=== PATIENT | female | born 1940 | race Caucasian/White ===

== ENCOUNTER → 2017-10-03 | Outpatient (CLI) | payer MEDICARE, OTHER | END | disposition home or self-care (01) | LOC: PCVCCLINIC 14:51 | DX: I25.810 Atherosclerosis of coronary artery bypass graft(s) without angina pectoris (principal); I10 Essential (primary) hypertension; R01.1 Cardiac murmur, unspecified; I77.9 Disorder of arteries and arterioles, unspecified; I48.0 Paroxysmal atrial fibrillation; I25.5 Ischemic cardiomyopathy; E78.00 Pure hypercholesterolemia, unspecified; R60.9 Edema, unspecified; Z87.891 Personal history of nicotine dependence; Z79.82 Long term (current) use of aspirin | CPT/HCPCS: 80061; 93005; G0463 ==

== ENCOUNTER → 2017-10-25 | Outpatient (CLI) | payer MEDICARE, OTHER | END | disposition home or self-care (01) | LOC: PCVCIMAG 13:34 | DX: I65.23 Occlusion and stenosis of bilateral carotid arteries (principal); E78.00 Pure hypercholesterolemia, unspecified; I10 Essential (primary) hypertension; I25.10 Atherosclerotic heart disease of native coronary artery without angina pectoris; I77.9 Disorder of arteries and arterioles, unspecified; R60.0 Localized edema; R00.1 Bradycardia, unspecified; I48.0 Paroxysmal atrial fibrillation; R94.31 Abnormal electrocardiogram [ECG] [EKG]; I25.5 Ischemic cardiomyopathy; Z79.899 Other long term (current) drug therapy; Z79.82 Long term (current) use of aspirin | CPT/HCPCS: 93005; 93306; 93880; G0463 ==

== ENCOUNTER 2021-11-18 18:44 | Inpatient (IN) | payer MEDICARE, OTHER ==
[~2021-11-18] VITALS: Ht 177.8 cm; Wt 54.7 kg
--- NOTE | 2021-11-18 19:32 | RAD ---
AP chest. HISTORY: Probable narcotic OD AP view was taken of the chest. There is arthritis in both shoulders. Patient had previous coronary b ypass. There is no effusion. Lungs are free of infiltrates. IMPRESSION: 1. No acute infiltrates. Electronically signed by: Fredy Lopez MD (11/18/2021 7:29 PM) [facility]
[2021-11-18 19:36] LABS: BASO % 1 % (0-3); EOS % 1 % (0-3); HEMOGLOBIN 7.9 g/dL (12.0-15.5); LYMPH # 0.8 x10^3/uL (1.0-4.8); LYMPH % 23 % (24-48); MEAN CORPUSCULAR HEMOGLOBIN 35 pg (25-35); MEAN CORPUSCULAR HGB CONC 33 g/dL (31-37); MEAN CORPUSCULAR VOLUME 107 fL (79-100); MONO # 0.3 x10^3/uL (0.0-1.1); MONO % 9 % (0-9); NEUT # 2.4 x10^3/uL (1.8-7.7); NEUT % 67 % (31-73); PLATELET COUNT 96 x10^3/uL (140-400); RED BLOOD COUNT 2.24 x10^6/uL (3.50-5.40); RED CELL DISTRIBUTION WIDTH 17.6 % (11.5-14.5); WHITE BLOOD COUNT 3.6 x10^3/uL (4.0-11.0)
[2021-11-18 19:45] LABS: CALCIUM 8.8 mg/dL (8.5-10.1); CREATININE 1.8 mg/dL (0.6-1.0); GFR 27.1
[2021-11-18] MEDS ORDERED: ACETAMINOPHEN 500 MG TABLET PO ONE (19:45)
[2021-11-18 19:46] LABS: PROTHROMBIN TIME PATIENT 13.5 SEC (11.7-14.0)
[2021-11-18 19:50] LABS: ALBUMIN 2.9 g/dL (3.4-5.0); TOTAL BILIRUBIN 0.3 mg/dL (0.2-1.0); TOTAL PROTEIN 5.9 g/dL (6.4-8.2)
[2021-11-18 20:08] LABS: BARBITURATES NEG (NEG); BENZODIAZEPINES NEG (NEG); CANNABINOIDS NEG (NEG); COCAINE NEG (NEG); METHADONE NEG (NEG); OPIATES NEG (NEG); PHENCYCLIDINE NEG (NEG)
[2021-11-18 20:10] LABS: HYALINE CASTS, URINE FEW /HPF
[2021-11-18 20:11] LABS: AMPHETAMINE/METHAMPHETAMINE NEG (NEG); BACTERIA,URINE MANY /HPF (0-FEW); RBC,URINE 0 /HPF (0-2)
[2021-11-18] MEDS ORDERED: cefTRIAXone IV Push 1 GM VIAL. IVP ONE (20:45)
[2021-11-18] MEDS ORDERED: IV NORMAL SALINE 500ML BAG 500 ML IV ONE (20:45)
--- NOTE | 2021-11-18 21:34 | RAD ---
BILATERAL LOWER EXTREMITY DUPLEX ARTERY ULTRASOUND Indication: Reason: poor BLE pulses, LLE cellulitis / Comparison: None. Procedure: Real-time grayscale, color flow Doppler, and Doppler spectral waveform analysis of the art erial system of the lower extremity is performed. Findings: There is no arterial occlusion. There is bilateral atherosclerotic disease. There is no elevated peak systolic velocity on the left. The right peroneal artery has elevated peak systolic velocity, 171 cm /second. There are monophasic waveforms throughout the right lower extremity. There is low velocity and low pu lsatility flow in the right posterior tibial and dorsalis pedis arteries. There are monophasic wavefo andrzej throughout the Left lower extremity. IMPRESSION: 1. No arterial occlusion. 2. There are monophasic waveforms throughout both lower extremities suggesting peripheral arterial d isease. There may be more proximal flow-limiting stenosis. Electronically signed by: Danny Cartwright MD (11/18/2021 9:32 PM) [facility]
--- NOTE | 2021-11-18 22:20 | PDOC1 ---
History and Physical Date of Admission Date of Admission DATE: 11/18/21 TIME: 22:05 Identification/Chief Complaint Chief Complaint AMS Source Source: Chart review History of Present Illness History of Present Illness Patient is 81-year-old female with past medical history DM2, HTN, atrial fibrillation, DVTs, dementia, who presents the ED from her [facility] due to poor responsiveness and altered mental status. Patient reportedly took 2 pain medications with drop in her blood pressure to 73/44. This improved with Narcan, but now in rate controlled A. fib. Labs of admission showed WBC 3.6, hemoglobin 7.9, hematocrit 24, MCV 107, platelets 96, BUN 57, creatinine 1.8, BUN/creatinine ratio 32, albumin 2.9. Due to concern for some peripheral artery disease and cellulitis to her left lower extremity, a duplex scan of the left lower extremity was ordered that showed no arterial occlusion, but monophasic waveforms throughout both lower extremities suggesting peripheral arterial disease. Patient did receive a dose of Rocephin in the ED. Because she was not lucid after receiving Narcan and unknown baseline, she will be admitted for further medical management. Past Medical History Past Medical History A. fib, dementia, CHF, DVTs, GERD, HLD, CKD, cellulitis, CABG Past Surgical History Past Surgical History: CABG Family History Family History: Family History Unknown Social History Smoke: No ALCOHOL: none Drugs: None Current Medications Current Medications Current Medications Acetaminophen (Tylenol) 1,000 mg 1X ONCE PO Last administered on 11/18/21at 21:13; Start 11/18/21 at 19:45; Stop 11/18/21 at 19:46; Status DC Ceftriaxone Sodium (Rocephin) 1 gm 1X ONCE IVP Last administered on 11/18/21at 21:13; Start 11/18/21 at 20:45; Stop 11/18/21 at 20:46; Status DC Sodium Chloride 500 ml @ 500 mls/hr 1X ONCE IV Last administered on 11/18/21at 21:13; Start 11/18/21 at 20:45; Stop 11/18/21 at 21:44; Status DC Allergies Allergies: Coded Allergies: No Known Drug Allergies (Unverified , 11/18/21) ROS Review of System Unable to obtain this time due to clinical condition Physical Exam Physical Exam General: Alert, Oriented X1, Cooperative, No acute distress. Frail-appearing. HEENT: PERRLA, EOMI Lungs: Clear to auscultation, Normal air movement Heart: Irregularly irregular, no murmurs Cardiovascular: S1, S2 Abdomen: Normal bowel sounds, Soft, No tenderness Extremities: No clubbing, No cyanosis Skin: Left lower extremity erythema. No significant lesion Neuro: Normal tone, Sensation intact Psych/Mental Status: Confused, lethargic Vitals Vitals Vital Signs Date Time Temp Pulse Resp B/P (MAP) Pulse Ox O2 Delivery O2 Flow Rate FiO2 11/18/21 21:03 55 118/56 (76) 100 Room Air 11/18/21 18:44 20 Labs Labs Laboratory Tests Test 11/18/21 19:25 11/18/21 19:50 White Blood Count 3.6 x10^3/uL (4.0-11.0) Red Blood Count 2.24 x10^6/uL (3.50-5.40) Hemoglobin 7.9 g/dL (12.0-15.5) Hematocrit 24.0 % (36.0-47.0) Mean Corpuscular Volume 107 fL (79-100) Mean Corpuscular Hemoglobin 35 pg (25-35) Mean Corpuscular Hemoglobin Concent 33 g/dL (31-37) Red Cell Distribution Width 17.6 % (11.5-14.5) Platelet Count 96 x10^3/uL (140-400) Neutrophils (%) (Auto) 67 % (31-73) Lymphocytes (%) (Auto) 23 % (24-48) Monocytes (%) (Auto) 9 % (0-9) Eosinophils (%) (Auto) 1 % (0-3) Basophils (%) (Auto) 1 % (0-3) Neutrophils # (Auto) 2.4 x10^3/uL (1.8-7.7) Lymphocytes # (Auto) 0.8 x10^3/uL (1.0-4.8) Monocytes # (Auto) 0.3 x10^3/uL (0.0-1.1) Eosinophils # (Auto) 0.0 x10^3/uL (0.0-0.7) Basophils # (Auto) 0.0 x10^3/uL (0.0-0.2) Prothrombin Time 13.5 SEC (11.7-14.0) Prothromb Time International Ratio 1.1 (0.8-1.1) Activated Partial Thromboplast Time 36 SEC (24-38) Sodium Level 140 mmol/L (136-145) Potassium Level 5.0 mmol/L (3.5-5.1) Chloride Level 107 mmol/L (98-107) Carbon Dioxide Level 24 mmol/L (21-32) Anion Gap 9 (6-14) Blood Urea Nitrogen 57 mg/dL (7-20) Creatinine 1.8 mg/dL (0.6-1.0) Estimated GFR (Cockcroft-Gault) 27.1 BUN/Creatinine Ratio 32 (6-20) Glucose Level 94 mg/dL (70-99) Calcium Level 8.8 mg/dL (8.5-10.1) Total Bilirubin 0.3 mg/dL (0.2-1.0) Aspartate Amino Transf (AST/SGOT) 25 U/L (15-37) Alanine Aminotransferase (ALT/SGPT) 27 U/L (14-59) Alkaline Phosphatase 90 U/L (46-116) Troponin I High Sensitivity 27 ng/L (4-50) Total Protein 5.9 g/dL (6.4-8.2) Albumin 2.9 g/dL (3.4-5.0) Albumin/Globulin Ratio 1.0 (1.0-1.7) Ethyl Alcohol Level < 10 mg/dL (0-10) Urine Collection Type Unknown Urine Color (Auto) Light yellow Urine Turbidity Hazy Urine pH (Auto) 5.5 (<5.0-8.0) Urine Specific [place] 1.014 (1.000-1.030) Urine Protein (Auto) Negative mg/dL (Negative) Urine Glucose (Auto)(UA) Negative mg/dL (Negative) Urine Ketones (Auto) Negative mg/dL (Negative) Urine Blood (Auto) Negative (Negative) Urine Nitrite Negative (Negative) Urine Bilirubin (Auto) Negative (Negative) Urine Urobilinogen (Auto) 2 mg/dL (Normal) Urine Leukocyte Esterase (Auto) Small (Negative) Urine RBC 0 /HPF (0-2) Urine WBC 11-20 /HPF (0-4) Urine Squamous Epithelial Cells Few /LPF Urine Bacteria Many /HPF (0-FEW) Urine Hyaline Casts Few /HPF Urine Opiates Screen Neg (NEG) Urine Methadone Screen Neg (NEG) Urine Barbiturates Neg (NEG) Urine Phencyclidine Screen Neg (NEG) Urine Amphetamine/Methamphetamine Neg (NEG) Urine Benzodiazepines Screen Neg (NEG) Urine Cocaine Screen Neg (NEG) Urine Cannabinoids Screen Neg (NEG) Urine Ethyl Alcohol Neg (NEG) Laboratory Tests Test 11/18/21 19:25 11/18/21 19:50 White Blood Count 3.6 x10^3/uL (4.0-11.0) Red Blood Count 2.24 x10^6/uL (3.50-5.40) Hemoglobin 7.9 g/dL (12.0-15.5) Hematocrit 24.0 % (36.0-47.0) Mean Corpuscular Volume 107 fL (79-100) Mean Corpuscular Hemoglobin 35 pg (25-35) Mean Corpuscular Hemoglobin Concent 33 g/dL (31-37) Red Cell Distribution Width 17.6 % (11.5-14.5) Platelet Count 96 x10^3/uL (140-400) Neutrophils (%) (Auto) 67 % (31-73) Lymphocytes (%) (Auto) 23 % (24-48) Monocytes (%) (Auto) 9 % (0-9) Eosinophils (%) (Auto) 1 % (0-3) Basophils (%) (Auto) 1 % (0-3) Neutrophils # (Auto) 2.4 x10^3/uL (1.8-7.7) Lymphocytes # (Auto) 0.8 x10^3/uL (1.0-4.8) Monocytes # (Auto) 0.3 x10^3/uL (0.0-1.1) Eosinophils # (Auto) 0.0 x10^3/uL (0.0-0.7) Basophils # (Auto) 0.0 x10^3/uL (0.0-0.2) Prothrombin Time 13.5 SEC (11.7-14.0) Prothromb Time International Ratio 1.1 (0.8-1.1) Activated Partial Thromboplast Time 36 SEC (24-38) Sodium Level 140 mmol/L (136-145) Potassium Level 5.0 mmol/L (3.5-5.1) Chloride Level 107 mmol/L (98-107) Carbon Dioxide Level 24 mmol/L (21-32) Anion Gap 9 (6-14) Blood Urea Nitrogen 57 mg/dL (7-20) Creatinine 1.8 mg/dL (0.6-1.0) Estimated GFR (Cockcroft-Gault) 27.1 BUN/Creatinine Ratio 32 (6-20) Glucose Level 94 mg/dL (70-99) Calcium Level 8.8 mg/dL (8.5-10.1) Total Bilirubin 0.3 mg/dL (0.2-1.0) Aspartate Amino Transf (AST/SGOT) 25 U/L (15-37) Alanine Aminotransferase (ALT/SGPT) 27 U/L (14-59) Alkaline Phosphatase 90 U/L (46-116) Troponin I High Sensitivity 27 ng/L (4-50) Total Protein 5.9 g/dL (6.4-8.2) Albumin 2.9 g/dL (3.4-5.0) Albumin/Globulin Ratio 1.0 (1.0-1.7) Ethyl Alcohol Level < 10 mg/dL (0-10) Urine Collection Type Unknown Urine Color (Auto) Light yellow Urine Turbidity Hazy Urine pH (Auto) 5.5 (<5.0-8.0) Urine Specific [place] 1.014 (1.000-1.030) Urine Protein (Auto) Negative mg/dL (Negative) Urine Glucose (Auto)(UA) Negative mg/dL (Negative) Urine Ketones (Auto) Negative mg/dL (Negative) Urine Blood (Auto) Negative (Negative) Urine Nitrite Negative (Negative) Urine Bilirubin (Auto) Negative (Negative) Urine Urobilinogen (Auto) 2 mg/dL (Normal) Urine Leukocyte Esterase (Auto) Small (Negative) Urine RBC 0 /HPF (0-2) Urine WBC 11-20 /HPF (0-4) Urine Squamous Epithelial Cells Few /LPF Urine Bacteria Many /HPF (0-FEW) Urine Hyaline Casts Few /HPF Urine Opiates Screen Neg (NEG) Urine Methadone Screen Neg (NEG) Urine Barbiturates Neg (NEG) Urine Phencyclidine Screen Neg (NEG) Urine Amphetamine/Methamphetamine Neg (NEG) Urine Benzodiazepines Screen Neg (NEG) Urine Cocaine Screen Neg (NEG) Urine Cannabinoids Screen Neg (NEG) Urine Ethyl Alcohol Neg (NEG) Images Images PATIENT: NATALIA SERRA ACCOUNT: [id number] : 1940 LOCATION: ER AGE: 81 SEX: F EXAM STATUS: REG ER ORD. PHYSICIAN: CIARRA WILSON MD REASON: poor BLE pulses, LLE cellulitis PROCEDURE: DUPLEX LOWER EXTREMITY BILAT BILATERAL LOWER EXTREMITY DUPLEX ARTERY ULTRASOUND Indication: Reason: poor BLE pulses, LLE cellulitis / Comparison: None. Procedure: Real-time grayscale, color flow Doppler, and Doppler spectral waveform analysis of the arterial system of the lower extremity is performed. Findings: There is no arterial occlusion. There is bilateral atherosclerotic disease. There is no elevated peak systolic velocity on the left. The right peroneal artery has elevated peak systolic velocity, 171 cm/second. There are monophasic waveforms throughout the right lower extremity. There is low velocity and low pulsatility flow in the right posterior tibial and dorsalis pedis arteries. There are monophasic waveforms throughout the Left lower extremity. IMPRESSION: 1. No arterial occlusion. 2. There are monophasic waveforms throughout both lower extremities suggesting peripheral arterial disease. There may be more proximal flow-limiting stenosis. VTE Prophylaxis Ordered VTE Prophylaxis Devices: No VTE Pharmacological Prophylaxi: Yes Assessment/Plan Assessment/Plan AMS Narcotic overdose Peripheral vascular disease Cellulitis left lower extremity WILLIAM Plan: No opiates seen on urine drug screen. Will need to discuss with [facility] about patient's baseline mental status. Continue treatment with IV Rocephin Unknown renal function baseline. Will hydrate. CRP pending Resume home meds FEN - Cardiac diet PPX - Heparin FULL CODE/no surrogate decision-maker able to be named at this time Dispo - inpatient for above Justifications for Admission Other Justification QUYNH DOWNEY MD Nov 18, 2021 22:20
[2021-11-18] MEDS ORDERED: ACETAMINOPHEN 325 MG TABLET. PO PRN (22:30)
[2021-11-18] MEDS ORDERED: CALCIUM CARBONATE 500 MG TAB.CHEW PO PRN (22:30)
[2021-11-18] MEDS ORDERED: MAG HYDROX/ALUMINUM HYD/SIMETH 30 ML ORAL.SUSP PO PRN (22:30)
[2021-11-18] MEDS ORDERED: ONDANSETRON PF 4 MG/2 ML VIAL. IVP PRN (22:30)
--- NOTE | 2021-11-18 23:17 | PHYS DOC ---
Past Medical History Additional Past Medical Histor: CKD,CELLULITIS Past Surgical History: Coronary Bypass Surgery Smoking Status: Never Smoker Alcohol Use: None Adult General Chief Complaint Chief Complaint: ALTERED MENTAL STATUS HPI HPI The patient is an 81-year-old female with a history of hypertension, hyperlipidemia, coronary artery disease status post CABG, atrial fibrillation on rate control medication but not on a blood thinner, some degree of heart failure on daily Lasix, dementia with behavioral disturbance on Risperdal. Ms. Nugent presents for evaluation of altered mental status at the nursing facility. Reportedly nursing staff found her not responsive. EMS were called. Upon arrival patient was not responsive with pinpoint pupils but was breathing and had a pulse. She was hypotensive to 70s/50s and bradycardic with a heart rate in the 40s. EMS gave IV Narcan whereupon the patient awoke and blood pressure normalized. Heart rate remained slow in the 40s to 50s. Blood glucose was appropriate during transport. Upon initial evaluation here in the emergency department patient is alert and a ppropriately interactive, stating she hurts all over. She remains bradycardic but other vital signs are appropriate. Rhythm on the cardiac cath technologist appears to be slow rate atrial fibrillation. She tells me that she took 2 pain pills of some kind that she had in her room before she woke up in the ambulance. She is unable to be is more specific and I do not see narcotic pain medications on her MAR. She does not provide much further history but is in no acute distress. Review of Systems Review of Systems A 12 point review of systems was completed and was negative except where noted in HPI above. Current Medications Current Medications Current Medications Medications (Trade) Dose Ordered Sig/[facility] Start Time Stop Time Status Last Admin Dose Admin Acetaminophen (Tylenol) 1,000 mg 1X ONCE 11/18/21 19:45 11/18/21 19:46 DC 11/18/21 21:13 1,000 MG Ceftriaxone Sodium (Rocephin) 1 gm 1X ONCE 11/18/21 20:45 11/18/21 20:46 DC 11/18/21 21:13 1 GM Sodium Chloride 500 ml @ 500 mls/hr 1X ONCE 11/18/21 20:45 11/18/21 21:44 DC 11/18/21 21:13 500 MLS/HR Allergies Allergies Allergies Coded Allergies Type Severity Reaction Last Updated Verified No Known Drug Allergies 11/18/21 No Physical Exam Physical Exam Cachectic, elderly chronically ill-appearing female who is nontoxic and in no acute distress. Head is normocephalic and atraumatic. Neck is supple and nontender. Oropharynx is moist. Lungs are clear to auscultation at all stations. There is a normal S1 and S2 without rubs or gallops and capillary refill is appropriate, less than 2 seconds globally. Abdomen is soft, nontender and nondistended without pulsatile mass. Skin is warm and dry without cyanosis, clubbing or edema. Psychiatrically, the patient demonstrates appropriate mood and affect and is alert. Evaluation of the extremities reveals nonpalpable pulses to the bilateral feet, although both feet are warm and well perfused with sensation and strength intact. There is also a distal left lower leg ana lulitis. Appears patient has been receiving treatment for this at the nursing facility. Current Patient Data Vital Signs Vital Signs Date Time Temp Pulse Resp B/P (MAP) Pulse Ox O2 Delivery O2 Flow Rate FiO2 11/18/21 20:33 53 115/56 (75) 99 Room Air 11/18/21 18:44 20 Lab Values Laboratory Tests Test 11/18/21 19:25 11/18/21 19:50 White Blood Count 3.6 x10^3/uL (4.0-11.0) L Red Blood Count 2.24 x10^6/uL (3.50-5.40) L Hemoglobin 7.9 g/dL (12.0-15.5) L Hematocrit 24.0 % (36.0-47.0) L Mean Corpuscular Volume 107 fL (79-100) H Mean Corpuscular Hemoglobin 35 pg (25-35) Mean Corpuscular Hemoglobin Concent 33 g/dL (31-37) Red Cell Distribution Width 17.6 % (11.5-14.5) H Platelet Count 96 x10^3/uL (140-400) L Neutrophils (%) (Auto) 67 % (31-73) Lymphocytes (%) (Auto) 23 % (24-48) L Monocytes (%) (Auto) 9 % (0-9) Eosinophils (%) (Auto) 1 % (0-3) Basophils (%) (Auto) 1 % (0-3) Neutrophils # (Auto) 2.4 x10^3/uL (1.8-7.7) Lymphocytes # (Auto) 0.8 x10^3/uL (1.0-4.8) L Monocytes # (Auto) 0.3 x10^3/uL (0.0-1.1) Eosinophils # (Auto) 0.0 x10^3/uL (0.0-0.7) Basophils # (Auto) 0.0 x10^3/uL (0.0-0.2) Prothrombin Time 13.5 SEC (11.7-14.0) Prothrombin Time INR 1.1 (0.8-1.1) Activated Partial Thromboplast Time 36 SEC (24-38) Sodium Level 140 mmol/L (136-145) Potassium Level 5.0 mmol/L (3.5-5.1) Chloride Level 107 mmol/L (98-107) Carbon Dioxide Level 24 mmol/L (21-32) Anion Gap 9 (6-14) Blood Urea Nitrogen 57 mg/dL (7-20) H Creatinine 1.8 mg/dL (0.6-1.0) H Estimated GFR (Cockcroft-Gault) 27.1 BUN/Creatinine Ratio 32 (6-20) H Glucose Level 94 mg/dL (70-99) Calcium Level 8.8 mg/dL (8.5-10.1) Total Bilirubin 0.3 mg/dL (0.2-1.0) Aspartate Amino Transferase (AST) 25 U/L (15-37) Alanine Aminotransferase (ALT) 27 U/L (14-59) Alkaline Phosphatase 90 U/L (46-116) Troponin I High Sensitivity 27 ng/L (4-50) Total Protein 5.9 g/dL (6.4-8.2) L Albumin 2.9 g/dL (3.4-5.0) L Albumin/Globulin Ratio 1.0 (1.0-1.7) Ethyl Alcohol Level < 10 mg/dL (0-10) Urine Collection Type Unknown Urine Color (Auto) Light yellow Urine Turbidity Hazy Urine pH (Auto) 5.5 (<5.0-8.0) Urine Specific [place] 1.014 (1.000-1.030) Urine Protein (Auto) Negative mg/dL (Negative) Urine Glucose (Auto)(UA) Negative mg/dL (Negative) Urine Ketones (Auto) Negative mg/dL (Negative) Urine Blood (Auto) Negative (Negative) Urine Nitrite Negative (Negative) Urine Bilirubin (Auto) Negative (Negative) Urine Urobilinogen (Auto) 2 mg/dL (Normal) Urine Leukocyte Esterase (Auto) Small (Negative) Urine RBC 0 /HPF (0-2) Urine WBC 11-20 /HPF (0-4) Urine Squamous Epithelial Cells Few /LPF Urine Bacteria Many /HPF (0-FEW) Urine Hyaline Casts Few /HPF Urine Opiates Screen Neg (NEG) Urine Methadone Screen Neg (NEG) Urine Barbiturates Neg (NEG) Urine Phencyclidine Screen Neg (NEG) Urine Amphetamine/Methamphetamine Neg (NEG) Urine Benzodiazepines Screen Neg (NEG) Urine Cocaine Screen Neg (NEG) Urine Cannabinoids Screen Neg (NEG) Urine Ethyl Alcohol Neg (NEG) Laboratory Tests 11/18/21 19:25 Laboratory Tests 11/18/21 19:25 EKG EKG Atrial fibrillation, rate 54, no acute ST elevation or depression, EP interpretation. Nonischemic tracing, intervals appropriate. Radiology/Procedures Radiology/Procedures AP chest. HISTORY: Probable narcotic OD AP view was taken of the chest. There is arthritis in both shoulders. Patient had previous coronary bypass. There is no effusion. Lungs are free of infiltrates. IMPRESSION: 1. No acute infiltrates. Electronically signed by: Fredy Lopez MD (11/18/2021 7:29 PM) [facility] DICTATED and SIGNED BY: FREDY LOPEZ MD DATE: 11/18/211927 BILATERAL LOWER EXTREMITY DUPLEX ARTERY ULTRASOUND Indication: Reason: poor BLE pulses, LLE cellulitis / Comparison: None. Procedure: Real-time grayscale, color flow Doppler, and Doppler spectral waveform analysis of the arterial system of the lower extremity is performed. Findings: There is no arterial occlusion. There is bilateral atherosclerotic disease. There is no elevated peak systolic velocity on the left. The right peroneal artery has elevated peak systolic velocity, 171 cm/second. There are monophasic waveforms throughout the right lower extremity. There is low velocity and low pulsatility flow in the right posterior tibial and dorsalis pedis arteries. There are monophasic waveforms throughout the Left lower extremity. IMPRESSION: 1. No arterial occlusion. 2. There are monophasic waveforms throughout both lower extremities suggesting peripheral arterial disease. There may be more proximal flow-limiting stenosis. Electronically signed by: Danny Cartwright MD (11/18/2021 9:32 PM) [facility] DICTATED and SIGNED BY: DANNY CARTWRIGHT MD DATE: 11/18/212126 Course & Med Decision Making Course & Med Decision Making 81-year-old female presenting after probable oral narcotic overdose at the nursing facility. Labs and imaging unremarkable aside from evidence of peripheral vascular disease without acute arterial occlusion. Dose of Rocephin given for left lower extremity cellulitis. Bringing in for further care given elderly comorbid female requiring narcotic reversal with Narcan, plus left lower extremity cellulitis. Patient is also quite bradycardic and I feel that she will benefit from cardiology consultation given slow rate atrial fibrillation. Dr. Jaquez graciously accepts. Critical care time was 37 minutes for narcotic overdose requiring reversal medication. Dragon Disclaimer Dragon Disclaimer This electronic medical record was generated, in whole or in part, using a voice recognition dictation system. Departure Departure Impression: Primary Impression: Atrial fibrillation with slow ventricular response Additional Impressions: Narcotic overdose Acute renal insufficiency Disposition: ADMITTED INPATIENT Condition: STABLE Referrals: BRADLEY INGRAM (PCP) Problem Qualifiers Additional Impressions: Narcotic overdose Encounter type: initial encounter Injury intent: accidental or unintentional Qualified Codes: T40.601A - Poisoning by unspecified narcotics, accidental (unintentional), initial encounter CIARRA WILSON MD Nov 18, 2021 23:17
[2021-11-18 23:30] VITALS: BP 137/64
[2021-11-18] MEDS: IV NORMAL SALINE 1000ML BAG 1,000 ML IV SCH (23:59)
[2021-11-19 03:00] VITALS: BP 105/50
[2021-11-19 04:51] LABS: BASO % 1 % (0-3); EOS # 0.1 x10^3/uL (0.0-0.7); EOS % 2 % (0-3); HEMATOCRIT 23.3 % (36.0-47.0); HEMOGLOBIN 7.7 g/dL (12.0-15.5); LYMPH # 0.8 x10^3/uL (1.0-4.8); LYMPH % 21 % (24-48); MEAN CORPUSCULAR HEMOGLOBIN 35 pg (25-35); MEAN CORPUSCULAR HGB CONC 33 g/dL (31-37); MEAN CORPUSCULAR VOLUME 107 fL (79-100); MONO # 0.4 x10^3/uL (0.0-1.1); MONO % 11 % (0-9); NEUT # 2.3 x10^3/uL (1.8-7.7); NEUT % 66 % (31-73); PLATELET COUNT 98 x10^3/uL (140-400); RED BLOOD COUNT 2.17 x10^6/uL (3.50-5.40); RED CELL DISTRIBUTION WIDTH 17.2 % (11.5-14.5); WHITE BLOOD COUNT 3.5 x10^3/uL (4.0-11.0)
[2021-11-19 05:06] LABS: CALCIUM 8.6 mg/dL (8.5-10.1); CREATININE 1.6 mg/dL (0.6-1.0); POTASSIUM 4.5 mmol/L (3.5-5.1)
--- NOTE | 2021-11-19 05:19 | EKG ---
[facility] [address] [place] [address] Test Date: 2021-11-18 Test Time: 23:05:12 Pat Name: NATALIA SERRA Department: Room: [facility] Gender: F Train Engineer: : 1940 Requested By: CIARRA WILSON Order Number: [id number] Reading MD: Chan Sanchez Measurements Intervals [place] Rate: 54 P: -44 CO: 208 QRS: 8 QRSD: 138 T: 105 QT: 544 QTc: 518 Interpretive Statements SINUS RHYTHM LEFT BUNDLE BRANCH BLOCK ABNORMAL ECG RI6.02 No previous ECG available for comparison Electronically Signed On 11-19-2021 13:13:50 CDT by Chan Sanchez
[2021-11-19] MEDS: HEPARIN for SUB-Q USE 5,000 UNIT/ML VIAL. SQ SCH ×2 (08:12→20:50)
[2021-11-19] MEDS: IV NORMAL SALINE 1000ML BAG 1,000 ML IV SCH ×2 (10:58→23:52)
[2021-11-19 11:00] VITALS: BP 124/56
--- NOTE | 2021-11-19 14:08 | PDOC ---
[facility] PROGRESS NOTE Date of Service DOS: DATE: 11/19/21 TIME: 14:04 Chief Complaint Chief Complaint Assessment/Plan AMSimproved Narcotic overdose Peripheral vascular disease Cellulitis left lower extremity WILLIAM WILLIAM due to vasomotor nephropathy Plan: Wound care consult Continue treatment with IV Rocephin Unknown renal function baseline. Will hydrate. CRP pending Resume home meds FEN - Cardiac diet PPX - Heparin FULL CODE/no surrogate decision-maker able to be named at this time Dispo -anticipate discharge in the next 24 to 48 hours History of Present Illness History of Present Illness 81-year-old female with past medical history DM2, HTN, atrial fibrillation, DVTs, dementia, who presents the ED from her intermediate due to poor responsiveness and altered mental status. Patient reportedly took 2 pain medications with drop in her blood pressure to 73/44. This improved with Narcan, but now in rate controlled A. fib. Labs of admission showed WBC 3.6, hemoglobin 7.9, hematocrit 24, MCV 107, platelets 96, BUN 57, creatinine 1.8, BUN/creatinine ratio 32, albumin 2.9. Due to concern for some peripheral artery disease and cellulitis to her left lower extremity, a duplex scan of the left lower extremity was ordered that showed no arterial occlusion, but monophasic waveforms throughout both lower extremities suggesting peripheral arterial disease. Patient did receive a dose of Rocephin in the ED. Because she was not lucid after receiving Narcan and unknown baseline, she will be admitted for further medical management. 11/19/2021 No acute events overnight. Patient seen examined bedside. More awake today. She is pleasantly confused and agitated with me. This appears to be her baseline. Spoke with nursing steam fitter supervisor at [facility]. She was given Lipscomb for chronic pain issues. I will make adjustments to this. Pending wound care consult. Continue IV antibiotics. Patient's chart, labs, images were reviewed and discussed with RN Vitals/I&O Vitals/I&O: Vital Signs Date Time Temp Pulse Resp B/P (MAP) Pulse Ox O2 Delivery O2 Flow Rate FiO2 11/19/21 11:00 61 20 124/56 (78) Room Air 11/19/21 03:00 97.2 98 97.2 I & O 11/18/21 11/18/21 11/19/21 15:00 23:00 07:00 Intake Total 0 ml Balance 0 ml Physical Exam General: Alert, mild distress Heart: Regular rate Lungs: Clear Abdomen: Normal bowel sounds Extremities: No clubbing Skin: No rashes Labs Labs: Laboratory Tests Test 11/18/21 19:25 11/18/21 19:50 11/19/21 04:00 White Blood Count 3.6 x10^3/uL (4.0-11.0) 3.5 x10^3/uL (4.0-11.0) Red Blood Count 2.24 x10^6/uL (3.50-5.40) 2.17 x10^6/uL (3.50-5.40) Hemoglobin 7.9 g/dL (12.0-15.5) 7.7 g/dL (12.0-15.5) Hematocrit 24.0 % (36.0-47.0) 23.3 % (36.0-47.0) Mean Corpuscular Volume 107 fL (79-100) 107 fL (79-100) Mean Corpuscular Hemoglobin 35 pg (25-35) 35 pg (25-35) Mean Corpuscular Hemoglobin Concent 33 g/dL (31-37) 33 g/dL (31-37) Red Cell Distribution Width 17.6 % (11.5-14.5) 17.2 % (11.5-14.5) Platelet Count 96 x10^3/uL (140-400) 98 x10^3/uL (140-400) Neutrophils (%) (Auto) 67 % (31-73) 66 % (31-73) Lymphocytes (%) (Auto) 23 % (24-48) 21 % (24-48) Monocytes (%) (Auto) 9 % (0-9) 11 % (0-9) Eosinophils (%) (Auto) 1 % (0-3) 2 % (0-3) Basophils (%) (Auto) 1 % (0-3) 1 % (0-3) Neutrophils # (Auto) 2.4 x10^3/uL (1.8-7.7) 2.3 x10^3/uL (1.8-7.7) Lymphocytes # (Auto) 0.8 x10^3/uL (1.0-4.8) 0.8 x10^3/uL (1.0-4.8) Monocytes # (Auto) 0.3 x10^3/uL (0.0-1.1) 0.4 x10^3/uL (0.0-1.1) Eosinophils # (Auto) 0.0 x10^3/uL (0.0-0.7) 0.1 x10^3/uL (0.0-0.7) Basophils # (Auto) 0.0 x10^3/uL (0.0-0.2) 0.0 x10^3/uL (0.0-0.2) Prothrombin Time 13.5 SEC (11.7-14.0) Prothromb Time International Ratio 1.1 (0.8-1.1) Activated Partial Thromboplast Time 36 SEC (24-38) Sodium Level 140 mmol/L (136-145) 141 mmol/L (136-145) Potassium Level 5.0 mmol/L (3.5-5.1) 4.5 mmol/L (3.5-5.1) Chloride Level 107 mmol/L (98-107) 108 mmol/L (98-107) Carbon Dioxide Level 24 mmol/L (21-32) 25 mmol/L (21-32) Anion Gap 9 (6-14) 8 (6-14) Blood Urea Nitrogen 57 mg/dL (7-20) 51 mg/dL (7-20) Creatinine 1.8 mg/dL (0.6-1.0) 1.6 mg/dL (0.6-1.0) Estimated GFR (Cockcroft-Gault) 27.1 31.0 BUN/Creatinine Ratio 32 (6-20) Glucose Level 94 mg/dL (70-99) 67 mg/dL (70-99) Calcium Level 8.8 mg/dL (8.5-10.1) 8.6 mg/dL (8.5-10.1) Total Bilirubin 0.3 mg/dL (0.2-1.0) Aspartate Amino Transf (AST/SGOT) 25 U/L (15-37) Alanine Aminotransferase (ALT/SGPT) 27 U/L (14-59) Alkaline Phosphatase 90 U/L (46-116) Troponin I High Sensitivity 27 ng/L (4-50) Total Protein 5.9 g/dL (6.4-8.2) Albumin 2.9 g/dL (3.4-5.0) Albumin/Globulin Ratio 1.0 (1.0-1.7) Ethyl Alcohol Level < 10 mg/dL (0-10) Urine Collection Type Unknown Urine Color (Auto) Light yellow Urine Turbidity Hazy Urine pH (Auto) 5.5 (<5.0-8.0) Urine Specific [place] 1.014 (1.000-1.030) Urine Protein (Auto) Negative mg/dL (Negative) Urine Glucose (Auto)(UA) Negative mg/dL (Negative) Urine Ketones (Auto) Negative mg/dL (Negative) Urine Blood (Auto) Negative (Negative) Urine Nitrite Negative (Negative) Urine Bilirubin (Auto) Negative (Negative) Urine Urobilinogen (Auto) 2 mg/dL (Normal) Urine Leukocyte Esterase (Auto) Small (Negative) Urine RBC 0 /HPF (0-2) Urine WBC 11-20 /HPF (0-4) Urine Squamous Epithelial Cells Few /LPF Urine Bacteria Many /HPF (0-FEW) Urine Hyaline Casts Few /HPF Urine Opiates Screen Neg (NEG) Urine Methadone Screen Neg (NEG) Urine Barbiturates Neg (NEG) Urine Phencyclidine Screen Neg (NEG) Urine Amphetamine/Methamphetamine Neg (NEG) Urine Benzodiazepines Screen Neg (NEG) Urine Cocaine Screen Neg (NEG) Urine Cannabinoids Screen Neg (NEG) Urine Ethyl Alcohol Neg (NEG) C-Reactive Protein, Quantitative 8.5 mg/L (0-3.3) Comment Review of Relevant I have reviewed the following items melissa (where applicable) has been applied. Medications: Current Medications Medications (Trade) Dose Ordered Sig/Jacquelyn Route PRN Reason Start Time Stop Time Status Last Admin Dose Admin Acetaminophen (Tylenol) 1,000 mg 1X ONCE PO 11/18/21 19:45 11/18/21 19:46 DC 11/18/21 21:13 Ceftriaxone Sodium (Rocephin) 1 gm 1X ONCE IVP 11/18/21 20:45 11/18/21 20:46 DC 11/18/21 21:13 Sodium Chloride 500 ml @ 500 mls/hr 1X ONCE IV 11/18/21 20:45 11/18/21 21:44 DC 11/18/21 21:13 Sodium Chloride 1,000 ml @ 75 mls/hr [id number] IV 11/18/21 22:45 11/19/21 10:58 Justifications for Admission Other Justification JAMAR ROMERO MD Nov 19, 2021 14:08
[2021-11-19 15:00] VITALS: BP 119/57
--- NOTE | 2021-11-19 15:41 | NUR ---
Wound/Ostomy Care Wound Type/Assessment: Wound care consult for multiple foot wounds. Pt has scabs to right heel, left 5th toe and left lateral ankle. Pt refused to allow this RN to touch, measure or dress wounds. All wounds appear stable. 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
--- NOTE | 2021-11-19 15:47 | NUR ---
SS following for discharge planning. SS reviewed pt chart and discussed with pt RN. Pt is LT resident from [facility], ; fax [phone]. Wound care consulted. Pt on IV Rocephin. Per facility, COVID19 test not required to return to placement. SS will continue to follow for discharge planning.
[2021-11-19 19:22] VITALS: BP 140/76
[2021-11-19] MEDS: LACTOBACILLUS RHAMNOSUS GG 1 CAPSULE. PO SCH (20:50)
[2021-11-19] MEDS ORDERED: cefTRIAXone IV Push 1 GM VIAL. IVP SCH (21:00)
[2021-11-19 23:28] VITALS: BP 129/64
[2021-11-20 03:16] VITALS: BP 149/72
[2021-11-20 04:23] LABS: BASO % 1 % (0-3); EOS % 1 % (0-3); HEMATOCRIT 26.6 % (36.0-47.0); HEMOGLOBIN 8.6 g/dL (12.0-15.5); LYMPH % 24 % (24-48); MEAN CORPUSCULAR HEMOGLOBIN 35 pg (25-35); MEAN CORPUSCULAR HGB CONC 32 g/dL (31-37); MEAN CORPUSCULAR VOLUME 109 fL (79-100); MONO # 0.3 x10^3/uL (0.0-1.1); MONO % 8 % (0-9); NEUT # 2.7 x10^3/uL (1.8-7.7); NEUT % 66 % (31-73); PLATELET COUNT 105 x10^3/uL (140-400); RED BLOOD COUNT 2.45 x10^6/uL (3.50-5.40)
[2021-11-20 05:10] LABS: CALCIUM 8.7 mg/dL (8.5-10.1); CREATININE 1.4 mg/dL (0.6-1.0); GFR 36.2; POTASSIUM 4.2 mmol/L (3.5-5.1)
[2021-11-20 07:16] VITALS: BP 155/67
[2021-11-20] MEDS: LACTOBACILLUS RHAMNOSUS GG 1 CAPSULE. PO SCH (09:02)
[2021-11-20] MEDS: HEPARIN for SUB-Q USE 5,000 UNIT/ML VIAL. SQ SCH (09:10)
[2021-11-20] MEDS ORDERED: DOXY100C3 PO (09:22)
--- NOTE | 2021-11-20 09:25 | SNU/HH DC ---
DISCHARGE ORDERS POST DISCHARGE ORDERS: WOUND/INCISION CARE: Other, see below (Treatment Recommendations/Plan: SCOTTY, paint with skin prep if pt will allow) OTHER WOUND INSTRUCTIONS: Offloading surface/device: float heels, TQ2H, offloading heel booties CHECKS AFTER DISCHARGE: CHECKS AFTER DISCHARGE: Check blood press - daily, Check your Temp as needed, Weigh Yourself Daily FOLLOW-UP: PHYSICIAN FOLLOW-UP: PCP within 2 weeks of discharge ADDITIONAL FOLLOW-UP: [facility] LAB ORDERS FOR FOLLOW-UP: CBC, CMP in 1 week DISCHARGE MEDICATIONS: Home Meds Active Scripts Doxycycline Hyclate (DOXYCYCLINE HYCLATE) 100 Mg Capsule, 1 CAP PO BID for cellulitis of legs for 5 Days, #10 CAP Prov:JAMAR ROMERO MD 11/20/21 JAMAR ROMERO MD Nov 20, 2021 09:25
[2021-11-20 10:04] VITALS: BP 176/82
--- NOTE | 2021-11-24 11:49 | PDOC3 ---
[facility]-Discharge Summary Date of Admission: Date of Admission: Nov 18, 2021 Date of Discharge: Date of Discharge: Nov 20, 2021 Discharge Diagnosis: Discharge Diagnosis: AMSimproved Narcotic overdose Peripheral vascular disease Cellulitis left lower extremity WILLIAM WILLIAM due to vasomotor nephropathy Procedures: Procedures: PROCEDURE: CHEST AP ONLY AP chest. HISTORY: Probable narcotic OD AP view was taken of the chest. There is arthritis in both shoulders. Patient had previous coronary bypass. There is no effusion. Lungs are free of infiltrates. IMPRESSION: 1. No acute infiltrates. PROCEDURE: DUPLEX LOWER EXTREMITY BILAT BILATERAL LOWER EXTREMITY DUPLEX ARTERY ULTRASOUND Indication: Reason: poor BLE pulses, LLE cellulitis / Comparison: None. Procedure: Real-time grayscale, color flow Doppler, and Doppler spectral waveform analysis of the arterial system of the lower extremity is performed. Findings: There is no arterial occlusion. There is bilateral atherosclerotic disease. There is no elevated peak systolic velocity on the left. The right peroneal artery has elevated peak systolic velocity, 171 cm/second. There are monophasic waveforms throughout the right lower extremity. There is low velocity and low pulsatility flow in the right posterior tibial and dorsalis pedis arteries. There are monophasic waveforms throughout the Left lower e xtremity. IMPRESSION: 1. No arterial occlusion. 2. There are monophasic waveforms throughout both lower extremities suggesting peripheral arterial disease. There may be more proximal flow-limiting stenosis. Hospital Course: Hospital Course: 81-year-old female with past medical history DM2, HTN, atrial fibrillation, DVTs, dementia, who presents the ED from her halfway due to poor responsiveness and altered mental status. Patient reportedly took 2 pain medications with drop in her blood pressure to 73/44. This improved with Narcan, but now in rate controlled A. fib. Labs of admission showed WBC 3.6, hemoglobin 7.9, hematocrit 24, MCV 107, platelets 96, BUN 57, creatinine 1.8, BUN/creatinine ratio 32, albumin 2.9. Due to concern for some peripheral artery disease and cellulitis to her left lower extremity, a duplex scan of the left lower extremity was ordered that showed no arterial occlusion, but monophasic waveforms throughout both lower extremities suggesting peripheral arterial disease. Patient did receive a dose of Rocephin in the ED. Because she was not lucid after receiving Narcan and unknown baseline, she will be admitted for further medical management. 11/19/2021 No acute events overnight. Patient seen examined bedside. More awake today. She is pleasantly confused and agitated with me. This appears to be her baseline. Spoke with nursing supervisor pairing and inspecting [facility]. She was given Babb for chronic pain issues. I will make adjustments to this. Pending wound care consult. Continue IV antibiotics. Patient's chart, labs, images were reviewed and discussed with RN By day of discharge patient confusion improved. She was not somnolent and her vitals were stable. Her left lower extremity looks somewhat improved. Wound care did see and recommended nursing bedside wound care. She will continue with doxycycline for another 5 days for management of cellulitis. Patient will return back to [facility]. Rest of hospital course was uneventful Disposition: Disposition/Orders: D/C to Another Facility Activity: Activity: Resume previous activity Medications: Home Meds Active Scripts Doxycycline Hyclate (DOXYCYCLINE HYCLATE) 100 Mg Capsule, 1 CAP PO BID for cellulitis of legs for 5 Days, #10 CAP Prov:JAMAR ROMERO MD 11/20/21 Scheduled Doxycycline Hyclate (Doxycycline Hyclate), 1 CAP PO BID Total Time: Total Time: Total time spent was 32 minutes in preparing scripts, discharge planning with SWI and RN and preparing this discharge summary Patient seen and examined on day of discharge. No acute abnormal findings. Justicifation of Admission Dx: Justifications for Admission: Justification of Admission Dx: Yes Altered Mental Status: Altered Mental Status JAMAR ROMERO MD Nov 24, 2021 11:49
== END 2021-11-20 15:30 | DRG 917 ==
LOC: ER 18:44 → ED HOLD 20:49 → 6 SOUTH 23:56
PROVIDERS: ADMIT Family Medicine; ATTEND Family Medicine
DX: T40.601A Poisoning by unspecified narcotics, accidental (unintentional), initial encounter (principal); N17.0 Acute kidney failure with tubular necrosis; I13.0 Hypertensive heart and chronic kidney disease with heart failure and stage 1 through stage 4 chronic kidney disease, or unspecified chronic kidney disease; L03.116 Cellulitis of left lower limb; R42 Dizziness and giddiness; E11.22 Type 2 diabetes mellitus with diabetic chronic kidney disease; E11.51 Type 2 diabetes mellitus with diabetic peripheral angiopathy without gangrene; E78.5 Hyperlipidemia, unspecified; F03.90 Unspecified dementia, unspecified severity, without behavioral disturbance, psychotic disturbance, mood disturbance, and anxiety; G89.29 Other chronic pain; I25.10 Atherosclerotic heart disease of native coronary artery without angina pectoris; I48.91 Unspecified atrial fibrillation; I50.9 Heart failure, unspecified; N18.9 Chronic kidney disease, unspecified; Z95.1 Presence of aortocoronary bypass graft; K21.9 Gastro-esophageal reflux disease without esophagitis; Y92.89 Other specified places as the place of occurrence of the external cause
CPT/HCPCS: 36415; 71045; 80048; 80053; 80307; 81001; 84484; 85025; 85610; 85730; 86140; 87086; 93005; 93925; 96374; G0480; J0696; J1644; J7030; J7040; 99291-25; G0378